=== PATIENT | male | born 1980 | race Hispanic/Latino ===

== ENCOUNTER 2020-03-31 01:48 | Emergency (ER) | payer OTHER ==
[2020-03-31] MEDS ORDERED: KETOROLAC TROMETHAMINE 60 MG/2 ML VIAL ONE (02:30)
[2020-03-31] MEDS ORDERED: CYCLOBENZAPRINE HCL 10 MG TABLET ONE (02:32)
== END 2020-03-31 03:29 | disposition home or self-care (01) ==
LOC: EDH 01:48
DX: S29.012A Strain of muscle and tendon of back wall of thorax, initial encounter (principal); S80.212A Abrasion, left knee, initial encounter; M62.830 Muscle spasm of back; M25.512 Pain in left shoulder; Z79.2 Long term (current) use of antibiotics; V49.49XA Driver injured in collision with other motor vehicles in traffic accident, initial encounter; Y93.89 Activity, other specified; Y92.89 Other specified places as the place of occurrence of the external cause; Y99.8 Other external cause status
CPT/HCPCS: 96372; 99283; J1885

== ENCOUNTER 2021-12-23 18:28 | Emergency (ER) | payer BC ==
[~2021-12-23] VITALS: Ht 165.1 cm; Wt 86.2 kg
[2021-12-23 20:37] LABS: BASOPHILS % (AUTO) 0.5 % (0.0-5.0); EOSINOPHILS % (AUTO) 1.1 % (0.0-8.0); HEMATOCRIT 39.3 % (42-54); LYMPHOCYTES % (AUTO) 32.1 % (21.0-51.0); MEAN CORPUSCULAR HEMOGLOBIN 29.5 pg (27.0-33.0); MEAN CORPUSCULAR HGB CONC 32.8 g/dL (32.0-36.0); MEAN CORPUSCULAR VOLUME 89.9 fL (79-99); MONOCYTES % (AUTO) 6.6 % (3.0-13.0); NEUTROPHILS % (AUTO) 59.5 % (40.0-77.0); PLATELET COUNT (AUTO) 335 K/uL (130-400); RED BLOOD CELL COUNT(AUTO) 4.37 MIL/uL (4.50-6.20); RED CELL DISTRIBUTION WIDTH 13.4 % (11.0-15.5); WHITE BLOOD COUNT (AUTO) 8.4 K/uL (4.8-10.8)
[2021-12-23 20:46] VITALS: BP 128/84
[2021-12-23 20:48] LABS: CREATININE 0.9 mg/dL (0.5-1.5); POTASSIUM 3.5 mmol/L (3.5-5.1)
[2021-12-23 20:50] LABS: PROTHROMBIN TIME 10.9 SEC (9.6-11.6)
[2021-12-23 20:51] LABS: PARTIAL THROMBOPLASTIN TIME 27.1 SEC (26.3-35.5)
[2021-12-23 20:53] LABS: ALBUMIN 4.4 g/dL (3.5-5.0); TOTAL PROTEIN, SERUM 8.6 g/dL (6.0-8.3)
[2021-12-23] MEDS ORDERED: APIX2.5T PO (21:45)
[2021-12-23] MEDS ORDERED: ACET-2079 PO (21:45)
[2021-12-23] MEDS ORDERED: ENOXAPARIN SODIUM 100 MG/1 ML SQ ONE (21:52)
[2021-12-23] MEDS ORDERED: MORPHINE 4 MG SYG IVP ONE (22:00)
[2021-12-23] MEDS ORDERED: ENOXAPARIN SODIUM 1 MG/KG SQ SCH (22:00)
[2021-12-23] MEDS ORDERED: ONDANSETRON 4MG INJ IVP ONE (22:00)
== END 2021-12-23 22:21 | disposition home or self-care (01) ==
LOC: EDH 18:28
DX: I82.812 Embolism and thrombosis of superficial veins of left lower extremity (principal)
CPT/HCPCS: 99284; 96374; 93971; 96375; 80053; 85025; 85610; 85730; 36415; 96372; J2405; J2270; J1650

== ENCOUNTER 2021-12-30 14:40 | Emergency (ER) | payer BC ==
[~2021-12-30] VITALS: Ht 165.1 cm; Wt 81.6 kg
[~2021-12-30 14:40] MED LIST: ACET-2079 PO; APIX2.5T PO
[2021-12-30 15:29] LABS: BASOPHILS % (AUTO) 0.5 % (0.0-5.0); EOSINOPHILS % (AUTO) 1.5 % (0.0-8.0); HEMATOCRIT 34.9 % (42-54); MEAN CORPUSCULAR HEMOGLOBIN 28.8 pg (27.0-33.0); MEAN CORPUSCULAR HGB CONC 32.4 g/dL (32.0-36.0); MONOCYTES % (AUTO) 8.8 % (3.0-13.0); NEUTROPHILS % (AUTO) 54.9 % (40.0-77.0); PLATELET COUNT (AUTO) 291 K/uL (130-400); RED BLOOD CELL COUNT(AUTO) 3.92 MIL/uL (4.50-6.20); RED CELL DISTRIBUTION WIDTH 13.1 % (11.0-15.5); WHITE BLOOD COUNT (AUTO) 6.5 K/uL (4.8-10.8)
[2021-12-30] MEDS ORDERED: ACETAMINOPHEN WITH CODEINE 1 TAB TAB PO ONE (15:30)
[2021-12-30 15:38] LABS: CREATININE 0.8 mg/dL (0.5-1.5); POTASSIUM 3.9 mmol/L (3.5-5.1)
[2021-12-30] MEDS ORDERED: ACET-2079 PO (15:41)
[2021-12-30 15:46] LABS: ALBUMIN 3.8 g/dL (3.5-5.0); TOTAL PROTEIN, SERUM 7.3 g/dL (6.0-8.3)
[2021-12-30 16:08] LABS: B-TYPE NATRIURETIC PEPTIDE 10 pg/mL (0-100)
[2021-12-30 16:57] LABS: APPEARANCE,URINE CLEAR (CLEAR); BILIRUBIN,URINE NEGATIVE (NEGATIVE); COLOR,URINE YELLOW (YELLOW); GLUCOSE, URINE (UA) NEGATIVE (NEGATIVE); KETONES,URINE NEGATIVE (NEGATIVE); LEUKOCYTE ESTERASE ,URINE SMALL (NEGATIVE); NITRATE,URINE NEGATIVE (NEGATIVE); OCCULT BLOOD,URINE NEGATIVE (NEGATIVE); PROTEIN,URINE NEGATIVE (NEGATIVE); UROBILINOGEN,URINE 0.2 mg/dL (0.2-1.0)
[2021-12-30 17:27] LABS: RBC,URINE 0-1 /HPF (0-1)
[2021-12-30 17:28] LABS: BACTERIA,URINE Rare /HPF (None Seen); SQUAMOUS EPITHELIAL CELL,UR Rare /HPF (0-2)
[2021-12-30 17:37] VITALS: BP 133/88
== END 2021-12-30 17:43 | disposition home or self-care (01) ==
LOC: EDH 14:40
DX: I82.812 Embolism and thrombosis of superficial veins of left lower extremity (principal); M79.605 Pain in left leg; Z79.01 Long term (current) use of anticoagulants; Z98.890 Other specified postprocedural states
CPT/HCPCS: 36415; 80053; 81001; 83880; 84484; 85025; 93005

== ENCOUNTER 2022-01-15 15:47 | Emergency (ER) | payer BC ==
[~2022-01-15] VITALS: Ht 165.1 cm; Wt 81.6 kg
[2022-01-15] MEDS ORDERED: IBUP-2071 PO (16:43)
[2022-01-15] MEDS ORDERED: HYDROCODONE/ACETAMINOPHEN 5/325 MG TAB PO ONE (17:00)
[2022-01-15 17:13] VITALS: BP 145/69
== END 2022-01-15 17:15 | disposition home or self-care (01) ==
LOC: EDH 15:47
DX: S99.912A Unspecified injury of left ankle, initial encounter (principal); F41.9 Anxiety disorder, unspecified; Z79.899 Other long term (current) drug therapy; Z98.890 Other specified postprocedural states; V49.69XA Unspecified car occupant injured in collision with other motor vehicles in traffic accident, initial encounter; Y93.89 Activity, other specified; Y92.413 State road as the place of occurrence of the external cause; Y99.8 Other external cause status

== ENCOUNTER 2024-03-13 16:10 | Emergency (ER) | payer BC ==
[~2024-03-13] VITALS: Ht 165.1 cm; Wt 90.7 kg
[~2024-03-13 16:10] MED LIST changes: +IBUP-2071 PO
[2024-03-13 17:04] LABS: SARS-CoV-2, RNA, NAAT NEGATIVE SARS CoV-2 (NEGATIVE)
[2024-03-13 17:09] LABS: INFLUENZA TYPE A Negative For Type A (NEGATIVE); INFLUENZA TYPE B Negative For Type B (NEGATIVE)
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
[2024-03-13 17:34] LABS: BASOPHILS # (AUTO) 0.03 K/uL (0.00-0.20); BASOPHILS % (AUTO) 0.4 % (0.0-5.0); EOSINOPHILS % (AUTO) 2.8 % (0.0-8.0); HEMATOCRIT 41.9 % (42-54); IMMATURE GRANULOCYTE ABSOLUTE 0.01 K/uL (0-1); LYMPHOCYTES # (AUTO) 2.2 K/uL (1.0-4.8); LYMPHOCYTES % (AUTO) 31.3 % (21.0-51.0); MEAN CORPUSCULAR HEMOGLOBIN 29.7 pg (27.0-33.0); MEAN CORPUSCULAR HGB CONC 33.9 g/dL (32.0-36.0); MEAN CORPUSCULAR VOLUME 87.7 fL (79-99); MONOCYTES # (AUTO) 0.6 K/uL (0.1-1.0); MONOCYTES % (AUTO) 8.9 % (3.0-13.0); NEUTROPHILS % (AUTO) 56.5 % (40.0-77.0); PLATELET COUNT (AUTO) 246 K/uL (130-400); RED BLOOD CELL COUNT(AUTO) 4.78 MIL/uL (4.50-6.20); RED CELL DISTRIBUTION WIDTH 13.2 % (11.0-15.5)
[2024-03-13 17:47] LABS: CREATININE 0.8 mg/dL (0.5-1.3); POTASSIUM 3.7 mmol/L (3.5-5.1)
[2024-03-13] MEDS: ORPHENADRINE 60MG/2ML IM ONE (18:13)
[2024-03-13 18:14] VITALS: BP 131/93; PULSE 90; RESP 16; TEMP 98.1; O2SAT 99
== END 2024-03-13 18:46 | disposition home or self-care (01) ==
LOC: EDH 16:10
DX: S99.812A Other specified injuries of left ankle, initial encounter (principal); G89.29 Other chronic pain; M54.50 Low back pain, unspecified; Z20.822 Contact with and (suspected) exposure to COVID-19; Z79.01 Long term (current) use of anticoagulants; Z79.899 Other long term (current) drug therapy; Z88.5 Allergy status to narcotic agent; X58.XXXA Exposure to other specified factors, initial encounter; Y93.89 Activity, other specified; Y92.89 Other specified places as the place of occurrence of the external cause; Y99.8 Other external cause status
CPT/HCPCS: 36415; 80048; 82550; 85025; 87635; 87804; 96372; J2360

== ENCOUNTER 2024-04-04 18:50 | Emergency (ER) | payer BC ==
[~2024-04-04] VITALS: Ht 165.1 cm; Wt 90.7 kg
[2024-04-04 19:23] VITALS: TEMP 98.1
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
--- NOTE | 2024-04-04 21:04 | HMCIMG ---
US VENOUS DOPPLER UNILATERAL HISTORY: Left leg swelling COMPARISON: 12/23/2021 TECHNIQUE: Left lower extremity venous Doppler ultrasound study was performed. FINDINGS: The left common femoral, femoral, popliteal, and posterior tibial veins are visualized. Normal flow with augmentation and compressibilities are demonstrated. Left greater saphenous vein is patent. There are left inguinal lymph nodes. IMPRESSION: 1. No evidence of deep venous thrombosis is seen.
[2024-04-04] MEDS: ketOROlac 30MG VIAL (30MG/ML) IM ONE (22:19)
[2024-04-04 22:30] VITALS: BP 136/77; PULSE 67; RESP 18; O2SAT 99
== END 2024-04-04 22:46 | disposition home or self-care (01) ==
LOC: EDH 18:50
DX: G89.29 Other chronic pain (principal); M25.572 Pain in left ankle and joints of left foot; M10.9 Gout, unspecified; Z79.01 Long term (current) use of anticoagulants; Z88.5 Allergy status to narcotic agent
CPT/HCPCS: 99284; 93971; 96372; J1885